=== PATIENT | male | born 1970 | race Caucasian/White ===

== ENCOUNTER 2023-06-27 05:20 | Day surgery (SDC) | payer BC ==
[2023-06-24 08:47] VITALS: BMI 25.2
[2023-06-27 08:24] VITALS: TEMP 97.6
[2023-06-27 10:07] VITALS: BP 100/85; PULSE 89; RESP 18
== END 2023-06-27 10:16 | disposition home or self-care (01) ==
LOC: JASU-ENDO 05:20
PROVIDERS: ATTEND Internal Medicine Gastroenterology
PROC: 0DBP8ZX Excision of Rectum, Via Natural or Artificial Opening Endoscopic, Diagnostic (ICD-10-PCS; 2023-06-27)
PROC: 0DBC8ZX Excision of Ileocecal Valve, Via Natural or Artificial Opening Endoscopic, Diagnostic (ICD-10-PCS; principal; 2023-06-27 09:00)
DX: Z12.11 Encounter for screening for malignant neoplasm of colon (principal); D12.8 Benign neoplasm of rectum; D12.0 Benign neoplasm of cecum; K64.8 Other hemorrhoids; K57.30 Diverticulosis of large intestine without perforation or abscess without bleeding; Z83.711 Family history of hyperplastic colon polyps
CPT/HCPCS: 88305-TC